=== PATIENT | female | born 1965 | race Caucasian/White ===

== ENCOUNTER 2018-08-31 00:41 | Emergency (ER) | payer BC ==
[~2018-08-31] VITALS: Ht 165.1 cm; Wt 65.3 kg
[2018-08-31] MEDS ORDERED: TRAZODONE 150150 M1 PO (00:58)
[2018-08-31] MEDS ORDERED: PAXIL20 MG PO (00:58)
[2018-08-31] MEDS ORDERED: SYNTHROID112 MC1 PO (00:59)
[2018-08-31 01:32] LABS: URINE BILIRUBIN NEGATIVE (Negative); URINE BLOOD NEGATIVE (Negative); URINE CLARITY CLEAR; URINE COLOR YELLOW; URINE GLUCOSE-RANDOM NEGATIVE (Negative); URINE KETONES TRACE (Negative); URINE LEUKOCYTES-REFLEX NEGATIVE (Negative); URINE NITRITE-REFLEX NEGATIVE (Negative); URINE PROTEIN NEGATIVE (Negative); URINE SPECIFIC GRAVITY 1.015 (1.005-1.030); URINE UROBILINOGEN 0.2 E.U./dl (0.2-1.0)
[2018-08-31 01:53] LABS: ABSOLUTE BASOPHILS 0.1 thou/uL (0.0-0.2); ABSOLUTE EOSINOPHILS 0.1 thou/uL (0.0-0.7); ABSOLUTE LYMPHOCYTES 3.3 thou/uL (0.8-5.3); ABSOLUTE MONOCYTES 0.7 thou/uL (0.0-1.2); ABSOLUTE NEUTROPHILS 4.7 thou/uL (1.6-8.1); BASOPHILS 0.8 %; EOSINOPHILS 1.1 %; HEMATOCRIT 43.5 % (37.0-47.0); HEMOGLOBIN 14.6 gm/dL (12.0-15.0); MCH 31.3 pg (26.0-34.0); MCHC 33.6 g/dL (28.0-37.0); MONOCYTES 8.2 %; MPV 7.1 fl. (7.2-11.1); NUCLEATED RBCS 0 /100WBC; PLATELET COUNT* 326 thou/uL (150-400); POLYS 52.9 %; RBC 4.68 mil/uL (4.20-5.00); RDW-CV 13.6 % (10.5-14.5)
[2018-08-31 02:06] LABS: CALCIUM 8.8 mg/dL (8.5-10.1); CREATININE 1.1 mg/dL (0.6-1.3); POTASSIUM 3.6 mmol/L (3.5-5.1)
[2018-08-31 02:11] LABS: ALBUMIN 3.8 g/dL (3.4-5.0); TOTAL BILIRUBIN 0.7 mg/dL (<0.1-1.0); TOTAL PROTEIN 7.3 g/dL (6.4-8.2)
[2018-08-31 03:35] VITALS: BP 124/72
== END 2018-08-31 03:35 | disposition home or self-care (01) ==
LOC: M.ERS 00:41
PROVIDERS: Personal Emergency Response Attendant
DX: K59.00 Constipation, unspecified (principal); Z91.013 Allergy to seafood